=== PATIENT | female | born 1995 | race Hispanic/Latino ===

== ENCOUNTER 2023-01-10 12:02 | Emergency (ER) | payer OTHER, SELFPAY ==
[2023-01-10 12:03] VITALS: BP 123/74; PULSE 88; RESP 16; TEMP 36.8; O2SAT 100
--- NOTE | 2023-01-10 13:25 | ED.GENADULT ---
HPI - General Adult General Chief complaint: Unspecified Stated complaint: jaw pain Time Seen by Provider: 01/10/23 12:22 History of Present Illness HPI narrative: 27 y/o female. PMHx None reported. Presents to ED today with acute complaints of LT side jaw pain, onset 2 days SCHEDULING ADMINISTRATOR. She reports to have been eating 48 hours ago, and 'felt a pop' in her left jaw when opening her mouth. -Increased tenderness and pain since occurrence. -Pain is 'sharp', and sometimes 'popping sensation', worse with mastication. -No fever, myalgias, seizures, neck pain or stiffness. -Denies falls or direct trauma. -No lesions/rash. -Denies sore throat, dyspnea, dysphagia, otalgia. -Denies additional neck pain. -No chest pain, palpitations. Has not yet sought out medical evaluation. No additional acute c/o upon PE. Related Data Allergies Allergy/AdvReac Type Severity Reaction Status Date / Time No Known Allergies Allergy Unknown Verified 01/10/23 12:11 Review of Systems Review of Systems: CONSTITUTIONAL: Denies fever, chills, sweats. EYES: Denies visual changes, redness, discharge. ENT: Denies rhinorrhea, congestion, sore throat, otalgia. CARDIOVASCULAR: Denies chest pain, palpitations, edema. RESPIRATORY: Denies dyspnea, wheezing, cough GASTROINTESTINAL: Denies abdominal pain, nausea, vomiting, diarrhea. GENITOURINARY: Denies dysuria, hematuria, abnormal discharge SKIN: Denies rash or itching. MUSCULOSKELETAL: LT jaw pain, 'felt a pop'. Denies additional joint pain, or myalgia. NEUROLOGIC: Denies numbness, or focal weakness. PSYCHIATRIC: Denies anxiety or depression. All other systems have been reviewed: Unless noted remaining ROS Negative. Exam Narrative: GENERAL: This is a well-nourished, well-developed adult, in no apparent distress. HEAD: normocephalic, atraumatic. EYES: PERRL. Sclera clear/white. EARS: External ears normal, auditory canals clear and without drainage, TMs normal. NOSE: External nose normal. MOUTH: With palpable LT masseter muscle spasm on exam. ROM of jaw intact, occlusion normal. No masses or lesions. No mastoid swelling or appreciable tenderness. No erythema or warmth. Uvula midline, palate soft, no dental tenderness, no levon's sxs. THROAT: Mucous membranes moist, posterior pharynx clear. No exudates. NECK: Neck supple, non-tender without lymphadenopathy, masses or thyromegaly. No meningeal signs. CARDIOVASCULAR: Regular rate and rhythm. RESPIRATORY: Clear to auscultation. GASTROINTESTINAL: Abdomen soft, non-tender. SKIN: warm, intact with no suspicious lesions or rash, good texture and turgor. NEURO: Alert, active, and age appropriate. No focal neurologic deficits. watermaster intact. EXTREMITIES: Negative. Course Vital Signs Vital signs: Vital Signs Temperature 36.8 C 01/10/23 12:03 Pulse Rate 88 01/10/23 12:03 Respiratory Rate 16 01/10/23 12:03 Blood Pressure 123/74 01/10/23 12:03 Pulse Oximetry 100 01/10/23 12:03 Oxygen Delivery Room Air 01/10/23 12:03 Temperature 36.8 C 01/10/23 12:03 Pulse Rate 88 01/10/23 12:03 Respiratory Rate 16 01/10/23 12:03 Blood Pressure 123/74 01/10/23 12:03 Pulse Oximetry 100 01/10/23 12:03 Oxygen Delivery Room Air 01/10/23 12:03 Medical Decision Making MDM Narrative Medical decision making narrative: -Palpable LT masseter muscle spasm on exam. ROM of jaw intact, occlusion normal. -No fever, myalgias, neck pain. -No falls or trauma identified. -DC Home stable. -OP NSAID, Norflex, Prednisone taper-Suspect TMJ. -Soft food options and easy mastication is advised. -Close PCP F/U 1 WK. Consider additional OP imaging or ENT referral as warranted. -Strict return to ER precaution is provided. (IE: Fever, sudden severe facial swelling, neurological changes, seizure, myalgias, difficulty swallowing, involuntary drooling, or other emergent status changes). Pt agrees. Differential Diagnosis Differential Diagnosis: Differential
[2023-01-10] MEDS: KETOROLAC 30 MG/ML VIAL (*BKC) IM (13:29)
[2023-01-10 14:00] VITALS: BP 125/68; PULSE 70; RESP 14; O2SAT 100
== END 2023-01-10 14:01 | disposition home or self-care (01) ==
PROVIDERS: Emergency Provider Nurse Practitioner Adult Health; PCP Physician Assistant
DX: M26.602 Left temporomandibular joint disorder, unspecified (principal)
CPT/HCPCS: 96372; 99283; J1885

== ENCOUNTER 2023-03-03 12:15 | Emergency (ER) | payer OTHER, SELFPAY ==
[2023-03-03 12:44] VITALS: BP 133/74; PULSE 92; RESP 16; TEMP 36.7; O2SAT 99
[2023-03-03] MEDS: HYDROGEN PEROXIDE 3% SOLN(*SP) 473 ML BOTTLE (14:09)
--- NOTE | 2023-03-03 14:13 | ED.EAR ---
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 This is a 27-year-old female, who denies past medical history, presenting to the emergency department complaining of left ear pain. She states over the last 2 days she has had nasal congestion and while blowing her nose today felt mild to moderate sharp left ear pain. She has no other complaints Related Data Allergies Allergy/AdvReac Type Severity Reaction Status Date / Time No Known Allergies Allergy Unknown Verified 01/10/23 12:11 Review of Systems Review of Systems: CONSTITUTIONAL: Denies fever, chills, or sweats. EYES: Denies visual changes, redness, or discharge. ENT: Rhinorrhea, congestion, left ear pain denies sore throat, CARDIOVASCULAR: Denies chest pain, palpitations, or edema. RESPIRATORY: Denies cough or dyspnea. NEUROLOGIC: Denies headache, numbness, dizziness, or weakness. PSYCHIATRIC: Denies anxiety or depression. [facility] Social History Social History (Updated 03/03/23 @ 14:15 by Ganga Deluca MD) Smoking status: Never smoker Alcohol intake: never Substance use: former Exam Narrative: GENERAL: Well-developed, well-nourished, and in no acute distress. HEAD: Normocephalic, atraumatic. EYES: PERRLA and EOMI. ENT: Nares clear, no rhinorrhea or epistaxis. Mucous membranes moist. Oropharynx without tonsillar hypertrophy exudate or other lesions. Right TMs pearly gautam nonbulging. Unable to assess the left TM for cerumen impaction CHEST: Clear to auscultation. No respiratory distress. No wheezes rales or rhonchi HEART: Regular rate and rhythm. No murmur heard. Normal peripheral pulses. ABDOMEN: Soft, nontender, nondistended, normal active bowel sounds. EXTREMITIES: Normal range of motion. No edema. SKIN: Warm, dry, no rash. NEURO: No focal deficits. Alert and oriented x3. PSYCH: Normal mood and affect Course Course Emergency Course: 14:25 - On reevaluation after cerumen disimpaction, the left TM is retracted, erythematous with purulent appearing fluid consistent with otitis media. Will discharge with antibiotics and recommendation for follow-up with primary care. Discussed return emerged precautions including signs/symptoms of infection. The patient voiced understanding and is comfortable with the plan. All questions answered to her satisfaction Vital Signs Vital signs: Vital Signs Temperature 98.1 F 03/03/23 12:44 Pulse Rate 92 03/03/23 12:44 Respiratory Rate 16 03/03/23 12:44 Blood Pressure 133/74 03/03/23 12:44 Pulse Oximetry 99 03/03/23 12:44 Oxygen Delivery Room Air 03/03/23 12:44 Temperature 98.1 F 03/03/23 12:44 Pulse Rate 92 03/03/23 12:44 Respiratory Rate 16 03/03/23 12:44 Blood Pressure 133/74 03/03/23 12:44 Pulse Oximetry 99 03/03/23 12:44 Oxygen Delivery Room Air 03/03/23 12:44 Procedures Ear Wax Removal Left Ear: Ear Wax Removal Date: 03/03/23 Ear Wax Removal Time: 14:09 Cerumenolytic Used: Cerumenex Results: Re-examined: cerumen removed completely TM Examination: TM(s) intact, normal appearance and TM(s) erythematous Ear Canal Exam: atraumatic Patient Tolerated Procedure: other Complications: vertigo/dizziness (Improved) Technique: ear canal irrigated Additional Comments: Procedure performed by nursing staff. Medical Decision Making MDM Narrative Medical decision making narrative: Plan: Cerumen disimpaction, pain control, reassess Differential Diagnosis Differential Diagnosis: TM perforation, cerumen impaction, retained foreign object, otitis media, otitis externa, congestion, other Vital Signs Vital Signs: Vital Signs Temperature 98.1 F 03/03/23 12:44 Pulse Rate 92 03/03/23 12:44 Respiratory Rate 16 03/03/23 12:44
== END 2023-03-03 15:02 | disposition home or self-care (01) ==
PROVIDERS: Emergency Provider Preventive Medicine Aerospace Medicine; PCP Physician Assistant
DX: H66.002 Acute suppurative otitis media without spontaneous rupture of ear drum, left ear (principal); H61.22 Impacted cerumen, left ear
CPT/HCPCS: 69209; 99283; A9270

== ENCOUNTER 2024-03-28 16:45 | Observation (INO) | payer OTHER, SELFPAY ==
[2024-03-28 17:00] VITALS: BP 122/64; PULSE 76
[2024-03-28 17:45] VITALS: BMI 32.8
--- NOTE | 2024-03-28 17:50 | PC.NURSE ---
Patient stated she fell down the stair and landed on her bottom around 1500 today. Patient denies any vaginal bleeding or leaking.
[2024-03-28 19:11] VITALS: BP 124/61; PULSE 74
[2024-03-28] MEDS: ACETAMINOPHEN 500 MG TABLET 1000 MG PO (19:42)
--- NOTE | 2024-04-01 12:07 | PM.OBTRLD ---
OB - Triage/Final Diagnosis Visit Information Comments/Additional reasons for admission: I have assessed the risk for this patient, Krysta Robledo, and determined that she would benefit from observation care. Final Diagnosis (1) Status post fall: Code(s): Z91.81 - History of falling Status: Acute
== END 2024-03-28 21:10 | disposition home or self-care (01) ==
PROVIDERS: Admitting Provider Obstetrics & Gynecology; PCP Physician Assistant; Visit Provider Obstetrics & Gynecology
DX: Z04.3 Encounter for examination and observation following other accident (principal); W19.XXXA Unspecified fall, initial encounter; Z3A.33 33 weeks gestation of pregnancy
CPT/HCPCS: A9270; G0378; G0379

== ENCOUNTER 2024-04-03 02:26 | Inpatient (IN) | payer OTHER, SELFPAY ==
[2024-04-03] VITALS (149 sets, daily range): BP systolic 104–141; BP diastolic 41–100; PULSE 64–134; RESP 16; TEMP 36.2–37; O2SAT 94–100; BMI 31.8
[2024-04-03 03:05] LABS: Basophils Percent Auto 0.2 % (0.2-1.2); Eosinophils Absolute Auto 0.1 K/mm3 (0-0.3); Eosinophils Percent Auto 0.9 % (0-4.4); Hematocrit 34.8 % (37.0-47.0); Hemoglobin 11.9 g/dL (12.0-15.0); Immature Granulocyte Absolute 0.04 K/mm3 (0.00-0.031); Immature Granulocyte Percent A 0.4 % (0-0.5); Lymphocytes Absolute Auto 1.47 K/mm3 (0.9-3.2); Lymphocytes Percent Auto 14.4 % (18.3-44.2); Mean Corpuscular HGB Conc 34.2 g/dl (32-36); Mean Corpuscular Hemoglobin 32.1 pg (26-34); Mean Corpuscular Volume 93.8 fl (80-100); Mean Platelet Volume 9.5 fl (7.4-10.4); Monocytes Absolute Auto 0.6 K/mm3 (0.1-0.6); Monocytes Percent Auto 5.9 % (2.6-8.5); Neutrophils Percent Auto 78.2 % (45.5-73.1); Platelet Count Result 214 k/mm3 (150-375); Red Blood Count 3.71 M/mm3 (4.2-5.4); Red Cell Distribution Width 13.7 % (11.5-14.5); White Blood Count 10.2 K/mm3 (4.5-10.0)
[2024-04-03] MEDS: LACTATED RINGERS 1,000 ML 125 ML IV CONT (03:05)
--- NOTE | 2024-04-03 03:11 | LDADM ---
This patient, Krysta Robledo, was admitted to Labor/Delivery/Recovery 106 on 04/03/24 at 02:26. Plans for labor, pain management and were discussed with patient. Patient/family oriented to hospital policies and general routines including ID bracelet, bed and alarms, visiting hours, pain management, procedures, bathroom and other care routines, personal items, smoking policy, room service/diet and guest tray routines, security routines, and visiting hours. Patient/Family are encouraged to report perceived risks to care and to ask questions if they do not understand what they are told or what they should do. See OBIX for further documentation.
--- NOTE | 2024-04-03 03:40 | WPDANESEPP ---
Anes - Eval Pre Procedure Procedure: labor epidural Date/Time: 04/03/24 03:40 Pre Op Diagnosis: contractions Patient Data Age: 29 Gender: F Height: 1.75 m Weight: 98 kg Last Vital Signs Pulse 71 04/03/24 03:30 BP 120/68 04/03/24 03:30 O2 Del Method Room Air 04/03/24 03:10 Allergies Allergy/AdvReac Type Severity Reaction Status Date / Time No Known Allergies Allergy Unknown Verified 03/17/24 13:10 Home Medications Medication Instructions Recorded Confirmed Type vits no.126-ferrous fum 1 tablet PO DAILY 03/17/24 03/28/24 History 28 mg iron-folic acid 800 mcg tablet (Classic ) Laboratory Tests 04/03/24 02:49 WBC 10.2 H K/mm3 (4.5-10.0) RBC 3.71 L M/mm3 (4.2-5.4) Hgb 11.9 L g/dL (12.0-15.0) Hct 34.8 L % (37.0-47.0) MCV 93.8 fl (80-100) MCH 32.1 pg (26-34) MCHC 34.2 g/dl (32-36) RDW 13.7 % (11.5-14.5) Plt Count 214 k/mm3 (150-375) MPV 9.5 fl (7.4-10.4) Immature Gran % (Auto) 0.4 % (0-0.5) Neut % (Auto) 78.2 H % (45.5-73.1) Lymph % (Auto) 14.4 L % (18.3-44.2) [place] % (Auto) 5.9 % (2.6-8.5) Eos % (Auto) 0.9 % (0-4.4) Baso % (Auto) 0.2 % (0.2-1.2) Lymph # (Auto) 1.47 K/mm3 (0.9-3.2) [place] # (Auto) 0.6 K/mm3 (0.1-0.6) Eos # (Auto) 0.1 K/mm3 (0-0.3) Baso # (Auto) 0.0 K/mm3 (0.0-0.1) Abs Immat Gran (auto) 0.04 H K/mm3 (0.00-0.031) Absolute Neuts (auto) 8.0 H K/mm3 (1.3-6.7) Absolute Nucleated RBC 0.000 K/mm3 (0.0-0.012) Nucleated RBC % 0.0 % (0.0-0.2) RPR Pending HIV 1&2 Ab/P24 Ag 4thGn Pending Blood Type Pending Antibody Screen Pending Patient hx anesthesia problems: none Family hx anesthesia problems: none Results Review: All pre-operative results and documents have been reviewed as part of the pre-operative evaluation. [facility] Family History Family History Other No pertinent family history Social History Social History Smoking status: Never smoker Second hand tobacco smoke exposure: No Alcohol intake: never Substance use: never Do You Feel Safe in your Home?: Yes Lack of Transportation: No Lack of Food: Never True Current Housing: I Have Housing Concerned About Future Housing: No Difficulty Paying Gas/Electric Bills: No Difficulty Paying for Meds: No Currently Unemployed: No Education: Grade School Difficulty w/ Childcare or Family Care: No Spiritual care concerns: No Exam Day of Procedure 04/03/24 03:40 Patient weight: obese Heart: regular rate and rhythm Lungs: clear to auscultation Airway: Mallampati scale Neurological: alert and oriented
[2024-04-03 04:13] LABS: HIV 1/2 Ab P24 Ag Result Negative (Negative)
--- NOTE | 2024-04-03 08:23 | WPDOBADMIT ---
Obstetrics - Admit Note Admission Note: record reviewed. No pertinent additions to the history and/or any subsequent changes in the physical findings that are not consistent with the expected course of the were found. Additions to the history and/or subsequent changes in the physical findings follow. None. Patient presented in labor. SVE 5cm, now 8cm. AROM of clear fluid. Anticipate .
[2024-04-03] MEDS: OXYTOCIN 30 UNITS/NS 500 ML 30 UNITS/500 ML BAG 999 UNITS IV CONT (09:19)
[2024-04-03] MEDS: OXYTOCIN 30 UNITS/NS 500 ML 30 UNITS/500 ML BAG 125 UNITS IV CONT (09:51)
--- NOTE | 2024-04-03 09:58 | PM.OBPRVD ---
OB - Vaginal Delivery Note Procedure Delivery date: 04/03/24 Delivery augmentation: Rupture of Membranes Delivery monitor: External FHT and External Uterine Route of delivery: Episiotomy description: None Laceration Description: Perineal - 2nd Degree Delivery repair: vicryl Specimen: Yes Quantitative Blood Loss (ml): 100 Anesthesia type: Epidural Disposition: Floor Complications: No immediate complications Narrative: See H&P and notes for details on patient's admission and labor. She progressed to complete cervical dilation and at the appropriate time began pushing. With adequate expulsive efforts by the mother, the baby's head was delivered without difficulty. Nuchal cord was not present. The baby's right shoulder was anterior and delivered under the pubic symphysis without difficulty. The posterior shoulder and the rest of the baby delivered without difficulty. The umbilical cord was doubly clamped and cut after 60 seconds of delayed cord clamping. Care of the infant was then assumed by the nursing staff. [place] Baby Date of : 04/03/24 Weeks of gestation at delivery: 39 gender: Male presentation: vertex position: Left Occiput Anterior Placenta delivery description: Expressed and Other (multilobed) Cord Vessel Description: 3 Vessels
[2024-04-03] MEDS: ACETAMINOPHEN 325 MG TABLET 650 MG PO ×2 (11:01→18:50)
[2024-04-03] MEDS: BENZOCAINE 20% AER SPR (*SP) 56 GM CAN 1 SPRAY TOPICAL (11:01)
[2024-04-03] MEDS: IBUPROFEN 600 MG TABLET PO ×2 (11:01→18:50)
[2024-04-03] MEDS: WITCH HAZEL 40 PADS 1 PAD TOPICAL (11:01)
--- NOTE | 2024-04-03 11:47 | OBPPTRN ---
Patient transferred to post room #286 via wheelchair. Support person present. Oriented to unit, room, information board, rooming in, admission packet and security measures. Patient verbalizes understanding.
[2024-04-03] MEDS: DOCUSATE SODIUM 100 MG CAPSULE PO (16:26)
[2024-04-04] MEDS: IBUPROFEN 600 MG TABLET PO ×3 (03:34→19:56)
[2024-04-04] MEDS: ACETAMINOPHEN 325 MG TABLET 650 MG PO ×3 (03:34→19:57)
[2024-04-04 05:42] LABS: Hematocrit 35.6 % (37.0-47.0); Hemoglobin 11.7 g/dL (12.0-15.0)
--- NOTE | 2024-04-04 08:28 | PM.OBPNVD ---
OB - PN: Subj Subjective Date/time seen: 04/04/24 08:28 Interval history: PPD#1 Doing well, pain well controlled Tolerating general diet Baby doing well OB - PN: Obj Data Labs 04/04/24 05:22 Labs: Laboratory Results - last 24 hr 04/04/24 05:22 Hgb 11.7 L Hct 35.6 L OB - PN A/P Assessment and Plan (1) (spontaneous vaginal delivery): Code(s): O80 - Encounter for full-term uncomplicated delivery Status: Acute Plan day: 1 Plan: routine care Time Spent With Patient Time: Total time spent is greater than 50% in coordination of care (as documented) at patient's floor/unit and/or counseling patient: Review of Systems Review of Systems: All systems reviewed & are unremarkable except as noted in HPI and below Exam Const: General: comfortable and no acute distress Resp: Effort & Inspection: normal respiratory effort
[2024-04-04] MEDS: DOCUSATE SODIUM 100 MG CAPSULE PO (08:59)
[2024-04-04] MEDS: MULTIVIT/MIN/PREN/FOL AC/IRON TABLET 1 TAB PO (08:59)
[2024-04-04 09:27] VITALS: BP 117/78; PULSE 67; RESP 18; TEMP 36.6; O2SAT 98
--- NOTE | 2024-04-04 11:48 | WPDANLDPN2 ---
Anes-Prog Note L&D Date/Time: 04/04/24 11:48 Comfortable throughout: labor and delivery Neuraxial method: epidural Epidural/Spinal procedure site: clean & non-tender Neuro status: Neuro function grossly intact. Cardiovascular status: normal Respiratory status: normal Airway patency: baseline Mental status: baseline Post-Op hydration status: normal Vital Signs: Last Vital Signs Temp 36.6 C 04/04/24 09:27 Pulse 67 04/04/24 09:27 Resp 18 04/04/24 09:27 BP 117/78 04/04/24 09:27 Pulse Ox 98 04/04/24 09:27 O2 Del Method Room Air 04/04/24 08:00 Pain score (VAS): 0/10 I/O: Intake & Output 04/03/24 04/04/24 04/04/24 23:59 07:59 15:59 Intake Total 240 Balance 240 Post-procedural complaints: none Patient feedback: Patient satisfied with anesthetic care.
[2024-04-04 18:30] VITALS: BP 117/77; PULSE 71; RESP 18; TEMP 36.7; O2SAT 98
[2024-04-05 07:40] VITALS: BP 126/76; PULSE 73; RESP 16; TEMP 36.5; O2SAT 98
[2024-04-05] MEDS: IBUPROFEN 600 MG TABLET PO ×2 (07:50→17:30)
[2024-04-05] MEDS: MULTIVIT/MIN/PREN/FOL AC/IRON TABLET 1 TAB PO (07:50)
--- NOTE | 2024-04-05 11:33 | PC.NURSE ---
1020 - Consulted with family concerning feeding needs. Mother is feeding appropriately for growth of and understands stimulating infant to eat if needed. has had appropriate feedings with breast and formula bottles in the last 24 hours meets the outcomes for weight, output, blood sugar and jaundice at this time. Mother shared she will pump at home and is waiting to go home at this time. Instructed mother to call her OB doctor if she has discoloration or pain on her breast, pain with pumping or latching. Reinforced understanding of milk production, transition of milk, signs of adequate intake, transition of stool, prevention/relief of engorgement, plugged ducts, mastitis, community resources, and when to call a provider. Parents voiced understanding of the information shared and denies any additional assistance or education at this time.
--- NOTE | 2024-04-05 12:09 | PM.OBDSVD ---
DS: Admitting Diagnosis Discharge Date 04/05/24 Admitting Diagnosis labor DS: Discharge Diagnosis Discharge Diagnosis (1) (spontaneous vaginal delivery): Code(s): O80 - Encounter for full-term uncomplicated delivery Status: Acute OB - DS: Summary OB Procedures : None OB Procedures Intrapartum: Spontaneous Vag Delivery OB Procedures: : None Peripartum Data Laceration Description: Perineal - 2nd Degree Episiotomy description: None Time Spent with Patient Time attestation: Total time spent providing and/or coordinating discharge services: DS: Data Data Completed and Pending Pending studies at discharge: Pending at discharge 04/03/24 09:35 Surgical [PTH] Routine Discharge Plan Discharge Attending physician on discharge: Doni Garcia Discharging Clinician: Doni Garcia Patient Disposition: Home, Self-Care Activity: may shower and pelvic rest Diet: as tolerated Discharge Instructions: Education: Mom and Baby Guide Given to: Mother Follow-Up: Call your delivering provider's office for an appointment to be seen in: Call for appointment Mom and baby should come to the [facility] for the follow-up appointment. Appointment Date/Time: April 06, 2024 at 11:00 am What to expect at your follow-up visit: Physical Assessment Call [phone] if you are unable to keep your appointment time. BREAST CARE: * Wear a snug supportive bra. * For engorgement discomfort: Breast Feeding: * Apply warm moist washcloths * Express milk as needed to relieve engorgement * Wear loose clothing * For sore nipples: * Identify correct latch-on * Apply warm moist washcloths before and after nursing * Air dry nipples after nursing * May apply Lansinoh cream to nipples EPISIOTOMY/PERINEAL CARE: * Until bleeding stops, use your jewels bottle after urinating * Change your pad frequently throughout the day * You may take sitz baths several times a day (fill your bathtub with warm water and soak for 20 minutes.) Do NOT bathe in the water * No tub baths until seen by your physician - You may shower ACTIVITY: * Rest as much as possible. * Do not exercise or lift anything heavier than your baby (such as laundry or other children.) * Avoid stairs or driving as much as possible. * Do not put anything into the vagina. No douching, tampons, or sexual activity until seen by physician. NOTIFY PHYSICIAN IF YOU HAVE ANY QUESTIONS OR IF ANY OF THE FOLLOWING SYMPTOMS OCCUR: * If your episiotomy or incision becomes red, swollen, or more painful than what you have experienced in the hospital. * If your vaginal bleeding becomes foul smelling. * If your vaginal bleeding becomes more heavy than a period or if your bleeding changes from pink to bright red. However, you may pass an occasional walnut-sized clot once or twice for the first week . * If you experience a sharp, shooting pain in you calves. * If you discover a hard, reddened area on your breast or if you experience flu-like symptoms. DIET: * Eat regular, well-balanced meals. * Drink plenty of fluids daily. If , drink to thirst. Patient Instructions: Antibiotic Form Stand Alone Forms: General Discharge Information Follow-up/Referrals: Doni Garcia MD [Physician] - 4 Weeks Discharge Medications: New ibuprofen 600 mg Tablet 600 mg PO Q6H PRN (Reason: Cramping) Qty: 30 0RF docusate sodium 100 mg Capsule 100 mg PO BID PRN (Reason: Constipation) Qty: 60 0RF Continued Classic 28 mg iron- 800 mcg Tablet 1 tablet PO DAILY Date of admission: 04/03/24 02:26 Primary Care Provider: DarienCleopatra Jean-Baptiste Admitting Provider: Doni Garcia Attending physician on admission: Doni Garcia Condition: Stable
[2024-04-05] MEDS: ACETAMINOPHEN 325 MG TABLET 650 MG PO (13:02)
[2024-04-05 13:15] LABS: Rapid Plasma Reagin Non-Reactive (NonReactive)
--- NOTE | 2024-04-05 16:56 | PC.NURSE ---
Patient viewed the discharge video Mother & Baby Care, The First Two Weeks . Patient was given the opportunity and encouraged to ask questions. Patient verbalized understanding of information shared and has been given the mother/baby guide for home reference.
[2024-04-06 11:18] VITALS: BP 121/81; PULSE 76; RESP 18; TEMP 36.9; O2SAT 100
== END 2024-04-05 17:37 | disposition home or self-care (01) | DRG 560 ==
LOC: ANHLDR 02:43 → ANHOB2 11:59
PROVIDERS: Admitting Provider Obstetrics & Gynecology; PCP Physician Assistant; Visit Provider Obstetrics & Gynecology
DX: O62.3 Precipitate labor (principal); Z37.0 Single live birth; Z3A.39 39 weeks gestation of pregnancy; O70.1 Second degree perineal laceration during delivery; O43.193 Other malformation of placenta, third trimester
CPT/HCPCS: 36415; 85014; 85018; 85025; 86592; 86703; 86850; 86900; 86901; 88307; A9270; G0432; J2590; J2795; J7120